=== PATIENT | female | born 1995 | race Caucasian/White ===

== ENCOUNTER 2022-10-23 05:44 | Emergency (ER) | payer BC, SELFPAY ==
[2022-10-23 05:47] VITALS: BP 155/102; PULSE 80; RESP 16; TEMP 36.8; O2SAT 98; BMI 48.2
--- NOTE | 2022-10-23 06:18 | CT_ITS ---
PROCEDURE INFORMATION: Exam: CT Head Without Contrast Exam date and time: 10/23/2022 6:59 AM Age: 26 years old Clinical indication: Injury or trauma; Fall; Work related; Blunt trauma (contusions or hematomas) and laceration; Without loss of consciousness; Without residual foreign body; Left; Injury date: 10/23/22; Injury details: PT felt dizzy and fel on pavement. Laceration to lt eye TECHNIQUE: Imaging protocol: Computed tomography of the head without contrast. Radiation optimization: All CT scans at this facility use at least one of these dose optimization techniques: automated exposure control; mA and/or kV adjustment per patient size (includes targeted exams where dose is matched to clinical indication); or iterative reconstruction. REPORTING DATA: Count of CT and Cardiac NM exams in prior 12 months: This patient has received 0 known CTs and 0 known cardiac nuclear medicine studies in the 12 months prior to the current study. COMPARISON: No relevant prior studies available. FINDINGS: Brain: Normal. No hemorrhage. Unremarkable white matter. No mass effect. Cerebral ventricles: No ventriculomegaly. Paranasal sinuses: Visualized sinuses are unremarkable. No fluid levels. Mastoid air cells: Visualized mastoid air cells are well aerated. Bones/joints: Unremarkable. No acute fracture. Soft tissues: There is left inferior frontal/periorbital soft tissue swelling IMPRESSION: No acute hemorrhage or calvarial fracture. Soft tissue injury.
[2022-10-23 06:27] LABS: Urine Pregnancy, HCG Qual. Negative (Negative)
--- NOTE | 2022-10-23 06:59 | [facility].EDFALL ---
Discharge Plan Disposition Patient Disposition: Home, Self-Care Prescriptions Prescriptions: New ketorolac 10 mg tablet 10 mg PO Q8H 5 Days Qty: 15 0RF Referrals Follow up/Referrals: Provider,Referral, MD [Primary Care Provider] - See instructions Clinical Impressions Clinical Impression: Concussion without loss of consciousness, Contusion of face, Abrasion Instructions Patient Instructions: DI for Concussion Discharge ED Provider: Steven ToledoED)Cornell HPI General Chief Complaint: Fall Stated Complaint: AO 10/23/22 05:10 injury head,knees,hands Time Seen by Provider: 10/23/22 06:00 Mode of Arrival: Ambulatory Source of Information: Patient and Medical Record Limitations: No Limitations Description of Symptoms (Recalled from ER Triage Doc. by RN): Pt c/o fall while getting out of her car. States that she has chronic migraines and has had a headache tonight and has not had her medication. States that she took a break while at work and sat in her car and once she got out of the car she became dizzy and fell, hitting her head. Obvious hematoma above left eye. Pt denies any loc or vomiting. History of Present Illness HPI Narrative: pt fell while at work and has head and facial injury - no loc -- no chest or abd pain - no hip pain complaint: fall Onset (ago): hour(s) Fall from: walking Fall witnessed: no Place fall occurred: work Loss of consciousness: none Prolonged down time: no Symptoms prior to fall: lightheadedness Context: other (see above ) Location of injury: head and face Severity: moderate Associated symptoms (after fall): other (abrasions and segovia ) Related Data Previous Rx's Medication Instructions Recorded ketorolac 10 mg tablet 10 mg PO Q8H 5 days #15 tabs 10/23/22 Allergies Allergy/AdvReac Type Severity Reaction Status Date / Time latex AdvReac Verified 10/23/22 06:17 [facility] Disclaimer: The information contained in this section may have been updated after the patient was seen, as this information can be updated by other users. Social History Smoking Status: Never smoker alcohol intake: never current occupational status: employed Travel in the last 8 weeks: None ROS Obtained: Yes All systems reviewed & no additional complaints except as documented Physical Exam General General appearance: alert and in no apparent distress Head Head exam: normocephalic Eye Eye exam: Present PERRL, EOMI and other (lt facial abrasions ) ENT ENT exam: Present mucous membranes moist Neck Neck exam: Present full ROM and trachea midline Chest Chest inspection: Absent tenderness Respiratory Respiratory exam: Absent respiratory distress Cardiovascular Cardiovascular exam: Present regular rate Abdominal Exam Abdominal exam: Present soft; Absent tenderness Extremities Exam Extremities exam: Present full ROM Back Exam Back exam: Absent vertebral tenderness Neurological Exam Neurological exam: Present alert, oriented X3, CN II-XII intact and other (gcs=15); Absent motor sensory deficit Skin Skin exam: Present other (abrasions ) Medical Decision Making Medical Records Medical records reviewed: Yes I reviewed the patient's medical records. Ezio Inquiry Pt receiving controlled substance: No Vital Signs: 10/23/22 05:47 10/23/22 07:18 10/23/22 07:33 Temperature 98.3 F Temperature Source Oral Pulse Rate 68 84 Pulse Rate [Apical] 80 Respiratory Rate 16 18 18 Blood Pressure 145/82 H 119/59 L Blood Pressure [Right Arm] 155/102 H Blood Pressure Mean 103 79 Blood Pressure Mean [Right Arm] 119 Blood Pressure Source [Right Arm] Automatic Cuff Blood Pressure Position [Right Arm] Sitting 02 Sat by Pulse Oximetry 98 99 99 Oxygen Delivery Method Room Air Room Air Room Air 10/23/22 08:01 10/23/22 08:31 Temperature Temperature Source Pulse Rate 82 76 Pulse Rate [Apical] Respiratory Rate 18 16 Blood Pressure 135/73 140/90 Blood Pressure [Righ
[2022-10-23 07:18] VITALS: BP 145/82; PULSE 68; RESP 18; O2SAT 99
--- NOTE | 2022-10-23 07:18 | PC.NURSE ---
Assumed patient care; informed patient of plan of care. Patient requesting for medication for her pain. MD notified. Verbal order of 60mg of IM Torodal. Call prasad within reach
[2022-10-23 07:33] VITALS: BP 119/59; PULSE 84; RESP 18; O2SAT 99
[2022-10-23 08:01] VITALS: BP 135/73; PULSE 82; RESP 18; O2SAT 98
--- NOTE | 2022-10-23 08:07 | PC.NURSE ---
Called RAD about CT results, they were putting it in as STAT to see if it would go quicker
--- NOTE | 2022-10-23 08:10 | PC.NURSE ---
Patient ambulated to the bathroom.
[2022-10-23 08:31] VITALS: BP 140/90; PULSE 76; RESP 16; O2SAT 96
--- NOTE | 2022-10-23 08:39 | PC.NURSE ---
contacted rad staff to check on status pt ct results. Reports scans are assigned but not being read yet.
[2022-10-23 09:19] VITALS: BP 139/86; PULSE 83; RESP 18; TEMP 36.8
== END 2022-10-23 09:15 | disposition home or self-care (01) ==
PROVIDERS: Emergency Provider Emergency Medicine
DX: S06.0X0A Concussion without loss of consciousness, initial encounter (principal); S00.93XA Contusion of unspecified part of head, initial encounter; V48.4XXA Person boarding or alighting a car injured in noncollision transport accident, initial encounter
CPT/HCPCS: 70450; 81025; 96372; 99284